=== PATIENT | male | born 1975 | race Caucasian/White ===

== ENCOUNTER → 2020-06-02 | Outpatient (CLI) | payer OTHER | LOC: LAB 09:39 | DX: Z20.828 Contact with and (suspected) exposure to other viral communicable diseases (principal) ==

== ENCOUNTER → 2021-04-10 | Outpatient (CLI) | payer OTHER | LOC: RAD 13:37 | DX: N28.1 Cyst of kidney, acquired (principal) | CPT/HCPCS: Q9967 ==

== ENCOUNTER → 2022-06-09 | Outpatient (CLI) | payer OTHER | LOC: RAD 15:49 | DX: M77.31 Calcaneal spur, right foot (principal) ==

== ENCOUNTER → 2022-08-31 | Outpatient (CLI) | payer OTHER | LOC: LAB 18:11 | DX: Z20.822 Contact with and (suspected) exposure to COVID-19 (principal) ==

== ENCOUNTER → 2024-10-17 | Outpatient (CLI) | payer OTHER | LOC: RAD 09:52 | DX: M25.561 Pain in right knee (principal); M25.571 Pain in right ankle and joints of right foot ==